=== PATIENT | male | born 1960 | race Caucasian/White ===

== ENCOUNTER → 2017-02-08 | Outpatient (CLI) | payer OTHER ==
[2017-02-08 17:58] LABS: COMPLETE YES; EOS % 0.9 %; HEMATOCRIT 46.1 % (42-52); IG% 0.2 %; LYMPH % 15.9 %; LYMPH ABS # 0.69 K/uL (1.2-3.4); MEAN CORPUSCULAR HEMOGLOBIN 31.4 pg (25-34); MEAN CORPUSCULAR HGB CONC 34.9 g/dl (32-36); MEAN PLATELET VOLUME 9.9 fL (7.4-10.4); MONO % 10.9 %; NEUT % 72.1 %; PLATELET COUNT 180 K/uL (130-400); RED BLOOD COUNT 5.12 M/uL (4.7-6.1); WHITE BLOOD COUNT 4.33 K/uL (4.8-10.8)
[2017-02-08 18:05] LABS: ALT/SGPT 27 U/L (12-78); BLOOD UREA NITROGEN 18 mg/dl (7-18); CALCIUM 9.1 mg/dl (8.5-10.1); CARBON DIOXIDE 30 mmol/L (21-32); CHLORIDE 102 mmol/L (98-107); CHOLESTEROL 191 mg/dl (0-200); GLUCOSE 91 mg/dl (70-99); POTASSIUM 4.5 mmol/L (3.5-5.1); SODIUM 137 mmol/L (136-145); TRIGLYCERIDES 97 mg/dl (0-150); VERY LOW DENSITY LIPOPROT CALC 19 mg/dl
[2017-02-08 18:09] LABS: ALB/GLOB RATIO 1.3 (0.9-2); ALKALINE PHOSPHATASE 65 U/L (45-117); AST/SGOT 28 U/L (15-37); CHOLESTEROL/HDL RATIO 3.3; HDL CHOLESTEROL 58 mg/dl; LDL CHOLESTEROL CALCULATED 114 mg/dl
== END | disposition home or self-care (01) ==
LOC: C.LABMFLN 12:58
PROVIDERS: ATTEND Family Medicine
DX: I10 Essential (primary) hypertension (principal); E78.5 Hyperlipidemia, unspecified; Z12.5 Encounter for screening for malignant neoplasm of prostate